=== PATIENT | female | born 1975 | race African-American/Black ===

== ENCOUNTER 2017-02-17 20:00 | Emergency (ER) | payer OTHER ==
[~2017-02-17] VITALS: Ht 172.7 cm; Wt 79.8 kg
[~2017-02-17 20:00] MED LIST: ADVAIR 250/501 DISK IH; INDOCIN25 MG PO; MOTRIN800 MG PO; NATALCARE RX1 TABLE1 PO; PREDNISONE20 MG PO; VENTOLIN HFA18 GM IH; ZITHROMAX250 MG PO; [UNRECOGNIZED DRUG - OTHER]
[2017-02-17 22:35] LABS: MCH 25.3 PG (29.0-34.0); MCHC 31.8 G/DL (30.0-36.0); MCV 79.6 FL (83-99); MEAN PLAT.VOLUME 9.5 uM^3 (9.5-12.4); PLATELET COUNT 335 K/uL (156-360); RBC DIS.WIDTH-CV 13.2 % (11.8-14.6); RBC DIS.WIDTH-SD 37.8 % (39-53); RED BLOOD COUNT 4.27 M/uL (3.80-5.20); WHITE BLOOD COUNT 15.5 K/uL (4.1-10.2)
[2017-02-17 22:43] LABS: CHLORIDE 105 mEq/L (99-109); SODIUM 140 mEq/L (136-147)
[2017-02-17 22:44] LABS: GLUCOSE 119 mg/dL (70-99)
[2017-02-17 22:46] LABS: ANION GAP 11 MEQ/L (2-14)
[2017-02-17 22:48] LABS: GFR ESTIMATE (CALCULATED) > 59 mL/min/
[2017-02-17 22:49] LABS: UREA NITROGEN (BUN) 11 mg/dL (9-23)
[2017-02-17 22:59] LABS: QUANTITATIVE HCG < 4.0 MIU/ML
[2017-02-17] MEDS ORDERED: LEVAQUIN500 MG PO (23:06)
[2017-02-17] MEDS ORDERED: ROBITUSSIN AC,T10 ML PO (23:06)
[2017-02-17] MEDS ORDERED: BENZONATATE100 MG PO (23:11)
[2017-02-17] MEDS ORDERED: DUONEB 2.5-0.5 M3 ML AEROSOL (23:38)
[2017-02-17 23:41] VITALS: BP 111/67
== END 2017-02-18 00:15 | disposition home or self-care (01) ==
LOC: EME 20:00
PROVIDERS: Physician Assistant
DX: J18.9 Pneumonia, unspecified organism (principal); J45.909 Unspecified asthma, uncomplicated; I10 Essential (primary) hypertension; F17.200 Nicotine dependence, unspecified, uncomplicated
CPT/HCPCS: 71020; 80048; 81003; 84702; 85027; 94640; 99281; 99284

== ENCOUNTER 2017-06-25 14:45 | Emergency (ER) | payer OTHER ==
[~2017-06-25] VITALS: Ht 175.3 cm; Wt 84.5 kg
[~2017-06-25 14:45] MED LIST changes: +BENZONATATE100 MG PO; +DUONEB 2.5-0.5 M3 ML AEROSOL; +LEVAQUIN500 MG PO; +ROBITUSSIN AC,T10 ML PO
[2017-06-25 15:34] LABS: BASOPHIL COUNT 0.1 K/uL (0-0.1); EOSINOPHIL (%) 4.3 % (0-5); EOSINOPHIL COUNT 0.4 K/uL (0-0.3); HEMATOCRIT 36.9 % (36.0-46.0); IMMATURE GRANULOCYTE (%) 0.1 % (0.0-0.7); INSTRUMENT ABS NEUTROPHIL CT 4.9 K/uL; LYMPHOCYTE COUNT 2.8 K/uL (1.0-2.8); MCH 25.5 PG (29.0-34.0); MCHC 31.7 G/DL (30.0-36.0); MCV 80.4 FL (83-99); MEAN PLAT.VOLUME 9.2 uM^3 (9.5-12.4); MONOCYTE (%) 5.8 % (3-12); MONOCYTE COUNT 0.5 K/uL (0-0.8); NEUTROPHIL (%) 56.7 % (45-76); NEUTROPHIL COUNT 4.9 K/uL (1.8-6.4); PLATELET COUNT 270 K/uL (156-360); RBC DIS.WIDTH-CV 14.2 % (11.8-14.6); RBC DIS.WIDTH-SD 41.3 % (39-53); RED BLOOD COUNT 4.59 M/uL (3.80-5.20); WHITE BLOOD COUNT 8.6 K/uL (4.1-10.2)
[2017-06-25 15:51] LABS: CHLORIDE 107 mEq/L (99-109); POTASSIUM 3.7 mEq/L (3.7-5.4); SODIUM 138 mEq/L (136-147)
[2017-06-25 15:52] LABS: GLUCOSE 108 mg/dL (70-99)
[2017-06-25 15:54] LABS: ANION GAP 10 MEQ/L (2-14)
[2017-06-25 15:56] LABS: GFR ESTIMATE (CALCULATED) > 59 mL/min/
[2017-06-25 15:57] LABS: UREA NITROGEN (BUN) 15 mg/dL (9-23)
[2017-06-25 16:02] LABS: TROP-I INTERPRETATION NEGATIVE; TROPONIN-I < 0.01 ng/mL (0.0-0.30)
[2017-06-25 18:19] LABS: TROP-I INTERPRETATION NEGATIVE; TROPONIN-I < 0.01 ng/mL (0.0-0.30)
[2017-06-25] MEDS ORDERED: TYLENOL WITH C1 EACH PO (18:32)
[2017-06-25 18:43] VITALS: BP 132/92
== END 2017-06-25 18:47 | disposition home or self-care (01) ==
LOC: EME 14:45
PROVIDERS: Emergency Medicine
DX: R07.89 Other chest pain (principal); I10 Essential (primary) hypertension; J45.909 Unspecified asthma, uncomplicated; F17.200 Nicotine dependence, unspecified, uncomplicated
CPT/HCPCS: 71010; 80048; 84484; 85025; 85379; 93005; 99281; 99285; J1885

== ENCOUNTER 2018-02-28 16:48 | Emergency (ER) | payer OTHER ==
[~2018-02-28] VITALS: Ht 172.7 cm; Wt 85.9 kg
[~2018-02-28 16:48] MED LIST changes: +TYLENOL WITH C1 EACH PO
[2018-02-28 17:24] LABS: HEMOGLOBIN 11.1 G/DL (11.9-15.5); MCH 26.6 PG (29.0-34.0); MCHC 32.6 G/DL (30.0-36.0); MCV 81.3 FL (83-99); PLATELET COUNT 290 K/uL (156-360); RBC DIS.WIDTH-CV 13.8 % (11.8-14.6); RBC DIS.WIDTH-SD 41.1 % (39-53); RED BLOOD COUNT 4.18 M/uL (3.80-5.20)
[2018-02-28 17:39] LABS: ALBUMIN 4.4 g/dL (3.2-4.8); CHLORIDE 106 mEq/L (99-109); POTASSIUM 4.6 mEq/L (3.7-5.4); SODIUM 139 mEq/L (136-147)
[2018-02-28 17:41] LABS: GLUCOSE 106 mg/dL (70-99); TOTAL PROTEIN 7.9 g/dL (6.4-8.3)
[2018-02-28 17:43] LABS: TOTAL BILIRUBIN 0.4 mg/dL (0.0-1.0)
[2018-02-28 17:45] LABS: ALKALINE PHOSPHATASE 94 IU/L (3-129); CREATININE 0.7 mg/dL (0.6-1.3); GFR ESTIMATE (CALCULATED) > 59 mL/min/
[2018-02-28 17:46] LABS: UREA NITROGEN (BUN) 14 mg/dL (9-23)
[2018-02-28 17:47] LABS: AST (GOT) 26 IU/L (2-34)
[2018-02-28 17:48] LABS: ALT (GPT) 20 IU/L (3-49)
[2018-02-28 19:27] LABS: APPEARANCE CLEAR ((CLEAR)); BILIRUBIN NEGATIVE; BLOOD NEGATIVE; COLOR YELLOW ((YELLOW)); GLUCOSE (STRIP) NEGATIVE; KETONES NEGATIVE; LEUKOCYTES NEGATIVE; NITRITE NEGATIVE; PROTEIN (STRIP) NEGATIVE; SPECIFIC GRAVITY 1.021 (1.000-1.030); UCUL ADDED? NO; UROBILINOGEN 0.2 MG/DL (0.2-1.0)
[2018-02-28] MEDS ORDERED: MOTRIN800 MG PO (19:43)
[2018-02-28] MEDS ORDERED: PERCOCET 5/31 TABLET PO (19:43)
[2018-02-28 19:47] VITALS: BP 143/97
== END 2018-02-28 19:57 | disposition home or self-care (01) ==
LOC: EME 16:48
PROVIDERS: Nurse Practitioner Family
DX: N83.202 Unspecified ovarian cyst, left side (principal); D25.9 Leiomyoma of uterus, unspecified; J45.909 Unspecified asthma, uncomplicated; I10 Essential (primary) hypertension; F41.9 Anxiety disorder, unspecified; F17.200 Nicotine dependence, unspecified, uncomplicated; Z87.442 Personal history of urinary calculi
CPT/HCPCS: 74176; 80053; 81003; 85027; 99281; 99285; J1885; J2270; J2405; J7030